=== PATIENT | female | born 1985 | race Caucasian/White ===

== ENCOUNTER 2018-10-07 19:17 | Emergency (ER) | payer BC ==
[2018-10-07] MEDS ORDERED: ONDANSETRON 4 MG/2 ML VIAL IVPB ONE (19:29)
--- NOTE | 2018-10-07 19:29 | PDOC ---
Rapid Medical Evaluation Medical Evaluation: I have performed a brief in-person evaluation of this patient. The patient presents with a chief complaint of: 12 weeks presents with NBNB emesis and lower abdominal pain; denies fever, vaginal bleeding, urinary complaints Pertinent physical exam findings: In NAD, slightly dry mucous membranes I have ordered the following: Labs, IVF, Zofran The patient will proceed to the ED for further evaluation. 10/07/18 19:25
[2018-10-07 19:30] VITALS: BP 108/73; PULSE 107; TEMP 98.9; BMI 24.2
[2018-10-07] MEDS ORDERED: DEXTROSE 5%-NORMAL SALINE 1,000 ML IV ONE (19:30)
[2018-10-07 19:53] LABS: BASO % 0.4 % (0-2.0); EOS % 0.2 % (0-4.5); HEMATOCRIT 40.2 % (32.4-45.2); HEMOGLOBIN 14.2 GM/dL (10.7-15.3); LYMPH % 7.1 % (8-40); MCH 31.2 pg (25.7-33.7); MCHC 35.3 g/dl (32.0-36.0); MEAN CELL VOLUME 88.4 fl (80-96); MEAN PLT VOLUME 7.5 fl (7.5-11.1); MONO % 3.5 % (3.8-10.2); NEUT % 88.8 % (42.8-82.8); PLATELET COUNT 421 K/MM3 (134-434); RBC 4.55 M/mm3 (3.60-5.2); RDW 13.2 % (11.6-15.6); WHITE BLOOD COUNT 18.2 K/mm3 (4.0-10.0)
--- NOTE | 2018-10-07 20:16 | PDOC ---
History of Present Illness - General Chief Complaint: Nausea/Vomiting Stated Complaint: 12 WEEKS PRENANCY Nausea/Vomiting ABD PAIN Time Seen by Provider: 10/07/18 19:54 History Source: Patient - History of Present Illness Initial Comments: 10/07/18 20:36 33-year-old 12 week female complaining of right upper quadrant pain with nausea and vomiting for one day. Patient reports morning sickness with nausea and vomiting for the last 3 weeks today is unusual as per patient. Reports chills denies fever. Denies urinary symptoms, vaginal bleeding, vaginal discharge, flank pain, hematemesis 1 Past History - Past Medical History Allergies/Adverse Reactions: Allergies Allergy/AdvReac Type Severity Reaction Status Date / Time No Known Allergies Allergy Verified 10/07/18 19:30 Home Medications: Ambulatory Orders Doxylamine Succinate/Vit B6 [Burton Sanon 10-10 mg Tablet] 1 each PO HS #7 tablet. 10/07/18 Nitrofurantoin Monohyd/M-Cryst [Macrobid -] 100 mg PO BID #14 capsule 10/07/18 COPD: No Other medical history: migraines - Immunization History Immunization Up to Date: Yes - Suicide/Smoking/Psychosocial Hx Smoking History: Never smoked Information on smoking cessation initiated: No Hx Alcohol Use: No Drug/Substance Use Hx: No Review of Systems - Review of Systems Able to Perform ROS?: Yes Is the patient limited Norwegian proficient: No Constitutional: Yes: Chills ABD/GI: Yes: Nausea, Vomiting, Abdominal cramping (RUQ/ epigastric pain) : No: Symptoms Reported, See HPI, Burning, Dysuria, Discharge, Frequency, Flank Pain, Hematuria, Incontinence, Pain, Urgency, Testicular Mass, Testicular Swelling, Lesions, Testicular Pain, Other Musculoskeletal: No: Symptoms Reported, See HPI, Back Pain, Gout, Joint Pain, Joint Swelling, Muscle Pain, Muscle Weakness, Neck Pain, Joint Stiffness, Other *Physical Exam - Vital Signs Last Vital Signs Temp Pulse Resp BP Pulse Ox 98.9 F 107 H 20 108/73 98 10/07/18 19:26 10/07/18 19:26 10/07/18 19:26 10/07/18 19:26 10/07/18 19:26 - Physical Exam General Appearance: Yes: Appropriately Dressed Respiratory/Chest: positive: Lungs Clear, Normal Breath Sounds Cardiovascular: positive: Regular Rhythm, Tachycardia Gastrointestinal/Abdominal: positive: Normal Bowel Sounds, Tender (RUQ/ epigastric ) Extremity: positive: Normal Capillary Refill, Normal Inspection, Normal Range of Motion Integumentary: positive: Normal Color, Dry, Warm Neurologic: positive: Fully Oriented, Alert, Normal Mood/Affect Moderate Sedation - Procedure Monitoring Vital Signs: Procedure Monitoring Vital Signs Temperature 98.9 F 10/07/18 19:26 Pulse Rate 107 H 10/07/18 19:26 Respiratory Rate 20 10/07/18 19:26 Blood Pressure 108/73 10/07/18 19:26 O2 Sat by Pulse Oximetry (%) 98 10/07/18 19:26 ED Treatment Course - LABORATORY CBC & Chemistry Diagram: 10/07/18 19:42 10/07/18 19:42 - ADDITIONAL ORDERS Additional order review: 10/07/18 19:42 RBC 4.55 MCV 88.4 MCHC 35.3 RDW 13.2 MPV 7.5 Neutrophils % 88.8 H Lymphocytes % 7.1 L Monocytes % 3.5 L Eosinophils % 0.2 Basophils % 0.4 Progress Note - Progress Note Progress Note: A: abdominal pain P: labs Abdominal US TVUS: 12 weeks IUp with [id number] Medical Decision Making - Medical Decision Making 10/07/18 22:29 abdominal pain resolved, abdominal US negative 10/07/18 23:00 has some nausea after drinking apple juice. will give antiemetics and reevaluate *DC/Admit/Observation/Transfer Diagnosis at time of Disposition: Nausea and vomiting during Abdominal pain Qualifiers: Abdominal location: right upper quadrant Qualified Code(s): R10.11 - Right upper quadrant pain UTI (urinary tract infection) Qualifiers: Urinary tract infection type: acute cystitis Hematuria presence: without hematuria Qualified Code(s): N30.00 - Acute cystitis without hematuria - Discharge Dispostion Disposition: HOME - Prescriptions Prescriptions: Doxylamine Succinate/Vit B6 [Burton Sanon 10-10 mg Tablet] 1 each PO HS #7 tablet. Nitrofurantoin Monohyd/M-Cryst [Macrobid -] 100 mg PO BID #14 capsule - Referrals - Patient Instructions Printed Discharge Instructions: DI for Vomiting -- Adult, DI for Morning Sickness Additional Instructions: drink plenty of fluids try a BRAT (bread, rice, apples, toast, bananas) diet follow up with your retail advisor - Post Discharge Activity Forms/Work/School Notes: Back to Work
[2018-10-07] MEDS ORDERED: SODIUM CHLORIDE 1,000 ML IV STA (20:23)
[2018-10-07] MEDS ORDERED: FAMOTIDINE 20 MG/50 ML IVPB 20 MG/50 ML MG IVPB ONE ×2 (20:24→20:27)
[2018-10-07] MEDS ORDERED: ONDANSETRON 4 MG/2 ML VIAL ONE (20:27)
[2018-10-07 20:30] LABS: CALCIUM 9.4 mg/dL (8.5-10.1); CREATININE 0.4 mg/dL (0.55-1.3)
[2018-10-07 20:31] LABS: ANION GAP 9 MMOL/L (8-16); BLOOD UREA NITROGEN 10 mg/dL (7-18); CHLORIDE 104 mmol/L (98-107); CO2 22 mmol/L (21-32); GLUCOSE,RANDOM 83 mg/dL (74-106); POTASSIUM 4.1 mmol/L (3.5-5.1); SODIUM 136 mmol/L (136-145)
[2018-10-07] MEDS ORDERED: METOCLOPRAMIDE HCL INJECTION 10 MG/2 ML VIAL IVPB ONE (22:42)
[2018-10-07] MEDS ORDERED: METOCLOPRAMIDE HCL 10 MG TABLET (FP) PO ONE ×2 (22:47)
[2018-10-07 23:19] LABS: URINE APPEARANCE CLEAR; URINE BILIRUBIN NEGATIVE (<2.0 mg/dL); URINE COLOR YELLOW; URINE GLUCOSE (UA) NEGATIVE (NEGATIVE); URINE KETONE 2+ (NEGATIVE); URINE LEUK ESTERASE TRACE (NEGATIVE); URINE NITRITE NEGATIVE (NEGATIVE); URINE PROTEIN 1+ (NEGATIVE); URINE UROBILINOGEN NEGATIVE mg/dL (0.2-1.0)
[2018-10-07 23:22] LABS: EPI CELLS FEW /HPF (FEW); URINE MUCUS FEW
[2018-10-07] MEDS ORDERED: NITROFURANTOIN MACROCRYSTAL 50 MG CAPSULE (FP) ONE (23:38)
== END 2018-10-07 23:43 | disposition home or self-care (01) ==
LOC: JER 19:17
PROC: 3E0337Z Introduction of Electrolytic and Water Balance Substance into Peripheral Vein, Percutaneous Approach (ICD-10-PCS; principal; 2018-10-07)
PROC: 3E033GC Introduction of Other Therapeutic Substance into Peripheral Vein, Percutaneous Approach (ICD-10-PCS; 2018-10-07)
PROC: 3E033GC Introduction of Other Therapeutic Substance into Peripheral Vein, Percutaneous Approach (ICD-10-PCS; 2018-10-07)
PROC: 3E033GC Introduction of Other Therapeutic Substance into Peripheral Vein, Percutaneous Approach (ICD-10-PCS; 2018-10-07)
DX: O26.891 Other specified pregnancy related conditions, first trimester (principal); O21.0 Mild hyperemesis gravidarum; O23.11 Infections of bladder in pregnancy, first trimester; N30.00 Acute cystitis without hematuria; Z3A.12 12 weeks gestation of pregnancy
CPT/HCPCS: 36415; 76705-TC; 76801-TC; 80048; 81003; 81015; 84702; 85025; 99283-25; J7030

== ENCOUNTER 2019-04-07 05:00 | Inpatient (IN) | payer BC, OTHER ==
[2019-04-07 05:25] LABS: MEAN PLT VOLUME 7.5 fl (7.5-11.1); NEUT % 70.3 % (42.8-82.8)
[2019-04-07 05:29] LABS: BASO % 0.5 % (0-2.0); EOS % 0.6 % (0-4.5); HEMATOCRIT 38.2 % (32.4-45.2); HEMOGLOBIN 12.9 GM/dL (10.7-15.3); LYMPH % 21.3 % (8-40); MCH 28.8 pg (25.7-33.7); MCHC 33.8 g/dl (32.0-36.0); MEAN CELL VOLUME 85.2 fl (80-96); MONO % 7.3 % (3.8-10.2); PLATELET COUNT 363 K/MM3 (134-434); RBC 4.49 M/mm3 (3.60-5.2); RDW 14.4 % (11.6-15.6)
[2019-04-07 05:32] VITALS: BMI 27.8
[2019-04-07 05:46] LABS: BLOOD UREA NITROGEN 8.1 mg/dL (7-18); CREATININE 0.4 mg/dL (0.55-1.3); POTASSIUM 3.8 mmol/L (3.5-5.1)
[2019-04-07] MEDS ORDERED: OXYTOCIN 20 UNITS in 0.9% NS 20 UNIT/1,000 ML INFUS.BAG IV ONE (06:00)
--- NOTE | 2019-04-07 06:06 | HP ---
Past Medical History - Primary Care Physician PCP:: Yaneth Su - Admission Chief Complaint: 33yo P1 @ 38.3wks with contructions, no VB, no LOF, + FM History of Present Illness: 1. IUGR - 8% on 03/02/19 and <3% on 03/09, normal Doppler 2. DS - maternal 2nd uncle - genetic carrier screen neg History Source: Patient, Medical Record - Past Medical History SECURED ENTRANCE MONITOR: Yes: Migraine (negative eval, not on meds) ...: 2 ...Para: 1 ...Term: 1 ...: 0 ...Spon : 0 ...Induced : 0 ...Multiple Gestation: 0 ...LMP: 07/12/18 ... Weeks Gestation by Dates: 38.3 ...EDC by Dates: 04/18/18 ...EDC by Sono: 04/18/18 Endocrine: Yes: Other (Thyroid transient disfunction, currently Euthyroid) - Past Surgical History Past Surgical History: Yes: None Hx Myomectomy: No Hx Transabdominal Cerclage: No - Smoking History Smoking history: Never smoked Have you smoked in the past 12 months: No - Alcohol/Substance Use Hx Alcohol Use: No History of Substance Use: reports: None - Social History History of Recent Travel: No Home Medications - Allergies Allergies/Adverse Reactions: Allergies Allergy/AdvReac Type Severity Reaction Status Date / Time No Known Allergies Allergy Verified 03/18/19 15:34 - Home Medications Home Medications: Ambulatory Orders Tablet 1 tab PO DAILY 03/18/19 Family Disease History - Family Disease History Family Disease History: Diabetes: Father (Prostate CA), Heart Disease: Father Review of Systems - Review of Systems Constitutional: reports: No Symptoms Eyes: reports: No Symptoms HENT: reports: No Symptoms Neck: reports: No Symptoms Cardiovascular: reports: No Symptoms Respiratory: reports: No Symptoms Gastrointestinal: reports: No Symptoms Genitourinary: reports: Other (Labor pains) Breasts: reports: No Symptoms Reported Musculoskeletal: reports: No Symptoms Integumentary: reports: No Symptoms Neurological: reports: No Symptoms Endocrine: reports: No Symptoms Hematology/Lymphatic: reports: No Symptoms Psychiatric: reports: No Symptoms Physical Exam - Maternity Vital Signs: Vital Signs Temperature 97.6 F 04/07/19 05:16 Pulse Rate 80 04/07/19 05:16 Respiratory Rate 20 04/07/19 05:16 Blood Pressure 105/67 04/07/19 05:16 O2 Sat by Pulse Oximetry (%) Constitutional: Yes: Well Nourished, No Distress Eyes: Yes: WNL, Conjunctiva Clear HENT: Yes: WNL, Atraumatic Neck: Yes: WNL, Supple, Trachea Midline Cardiovascular: Yes: WNL, Regular Rate and Rhythm Lungs: Clear to auscultation Breast(s): Yes: WNL - Abdominal Exam/OB Fundal Height: 36 Number of Fetuses: Single Presentation: Vertex Contractions: Yes Regularity: Regular Intensity: Moderate Monitor Mode: External Heart Rate (range): 130 Heart Rate Location: Midline Category: I Accelerations: Uniform Decelerations: None - Vaginal Exam/OB Vaginal Bleediing: No Dilatation (cm): FD Effacement (%): 100 Amniotic Membrane Status: Intact Presentation: Vertex/Position Station: 0 - Physical Exam Musculoskeletal: Yes: WNL Extremities: Yes: WNL Edema: No Integumentary: Yes: WNL ...Motor Strength: WNL Psychiatric: Yes: WNL, Alert, Oriented - Labs Lab Results: CBC, BMP 04/07/19 05:15 04/07/19 05:15 Assessment/Plan 33yo P1 @ 38.3 wks in active labor, Stage 2 Admit to L&D NPO, IVF AROM - clear fluid Start second stage EFW - 2kg, Gynecoid pelvis MF status reasuring Neonatology aware
[2019-04-07] MEDS ORDERED: OXYTOCIN 30 UNITS in 0.9% NS 30 UNIT/500 ML INFUS.BAG IVPB ONE (06:09)
[2019-04-07] MEDS ORDERED: LIDOCAINE HCL 1% PRESERVATIVE FREE - 30ML VIAL ONE (06:10)
[2019-04-07] MEDS ORDERED: DEXTROSE 5%-LACTATED RINGERS 1,000 ML IV SCH (06:15)
[2019-04-07] MEDS: OXYTOCIN 30 UNITS in 0.9% NS 30 UNIT/500 ML INFUS.BAG IVPB SCH (06:15)
[2019-04-07] MEDS: DEXTROSE 5%-LACTATED RINGERS 1,000 ML IV SCH (06:15)
[2019-04-07 06:24] LABS: INR 0.96 (0.83-1.09); PROTHROMBIN TIME (PATIENT) 11.3 SEC (9.7-13.0)
[2019-04-07 06:26] LABS: ACTIVATED PTT 34.7 SECONDS (25.2-36.5)
[2019-04-07] MEDS: OXYTOCIN 20 UNITS in 0.9% NS 20 UNIT/1,000 ML INFUS.BAG IV SCH (07:35)
[2019-04-07] MEDS ORDERED: BENZOCAINE 28 GM HEMORRHOIDAL OINTMENT TP PRN (07:35)
[2019-04-07] MEDS ORDERED: METHYLERGONOVINE MALEATE 0.2 MG/1 ML AMP IM PRN (07:35)
[2019-04-07] MEDS ORDERED: BISACODYL 10 MG SUPP.RECT RC PRN (07:35)
[2019-04-07] MEDS ORDERED: BENZOCAINE 20% 57 GM BOTTLE TP PRN (07:35)
[2019-04-07] MEDS ORDERED: WITCH HAZEL 50% (TUCKS) 40 PAD/JAR PAD TP PRN (07:35)
--- NOTE | 2019-04-07 07:39 | PN ---
Delivery - Delivery Vaginal Delivery: No Problems Type of Anesthesia: None Episiotomy/Laceration: None EBL (cc): 200 Delivery, Single - Stages of Labor Date 1st Stage Initiatied: 04/07/19 Time 1st Stage Initiated: 02:00 Date 2nd Stage Initiated: 04/07/19 Time 2nd Stage Initiated: 05:45 Date of Delivery: 04/07/19 Time of Delivery: 07:00 Date Placenta Delivered: 04/07/19 Time Placenta Delivered: 07:30 Placenta: Yes: Spontaneous - Condition of Sea Shell Gatherer/Front End Drupal Developer Present: Yes Name: Ana Ramirez Infant Gender: Female Weight: 5 lb 5 oz Position: Left, OA - 1 Minute Total Score: 9 5 Minutes Total Score: 9 - Feeding Plan Initial Plan: Elected not to breastfeed exclusively throughout hospitalization Benefits of Exclusively reinforced: Yes Remarks - Remarks Remarks: Uncomplicated delivery of head and shoulders
[2019-04-07] MEDS ORDERED: D5W-LR W/ 20 UNITS OXYTOCIN 20 UNIT/1,000 ML INFUS.BAG IV SCH (07:45)
[2019-04-07] MEDS: IBUPROFEN 600 MG TABLET (FP) PO PRN ×2 (08:20→18:19)
[2019-04-07 08:39] LABS: VENOUS PC02 39.4 mmHg (41-51); VENOUS PO2 35.1 mmHg (30-40)
[2019-04-07 08:42] LABS: ARTERIAL BLD GAS O2 SATURATION 54.6 % (95-98); ARTERIAL BLOOD GAS BASE EXCESS -6.2 meq/l (-2-2); ARTERIAL BLOOD GAS PCO2 66.4 mmHg (35-45); ARTERIAL BLOOD GAS PO2 30.6 mmHg (80-105)
[2019-04-07 08:44] LABS: ARTERIAL BLOOD GAS pH 7.18 (7.35-7.45)
[2019-04-07 08:45] LABS: VENOUS PH 7.31 (7.31-7.41)
[2019-04-07] MEDS: PRENATAL VITAMINS W/ FOLIC ACID TABLET (FP) PO SCH (10:33)
[2019-04-07] MEDS: FERROUS SO4 325 MG TABLET (FP) PO SCH ×2 (10:33→21:07)
[2019-04-07] MEDS: ACETAMINOPHEN 325 MG TABLET (FP) PO PRN (18:19)
[2019-04-08] MEDS: ACETAMINOPHEN 325 MG TABLET (FP) PO PRN (01:04)
[2019-04-08] MEDS: IBUPROFEN 600 MG TABLET (FP) PO PRN (01:04)
--- NOTE | 2019-04-08 02:22 | PN ---
Post Progress Note - Subjective Subjective: Patient without acute complaints. Reports tolerating oral intake without nausea or vomiting. Ambulating without dizziness. Denies fevers or chills. Pain well controlled with oral pain medication. without difficulty. Passing flatus. Post Day: 1 Type of Delivery: Vital Signs: Vital Signs Temperature 97.9 F 04/07/19 22:47 Pulse Rate 72 04/07/19 22:47 Respiratory Rate 18 04/07/19 22:47 Blood Pressure 101/52 L 04/07/19 22:47 O2 Sat by Pulse Oximetry (%) 100 04/07/19 08:30 Uterus: Yes: Fundus Firm, Fundus below umbilicus Abdomen/GI: Yes: Abdomen soft, Passing flatus, Tolerating PO. No: Abdominal Distention, Tender Lochia: Yes: Serosa Lochia, amount: Small Extremities: Yes: Calves non-tender, Edema (trace) Activity: Ambulating - Labs Labs: CBC WBC 16.0 K/mm3 (4.0-10.0) H 04/07/19 05:15 RBC 4.49 M/mm3 (3.60-5.2) 04/07/19 05:15 Hgb 12.9 GM/dL (10.7-15.3) 04/07/19 05:15 Hct 38.2 % (32.4-45.2) 04/07/19 05:15 MCV 85.2 fl (80-96) 04/07/19 05:15 MCH 28.8 pg (25.7-33.7) 04/07/19 05:15 MCHC 33.8 g/dl (32.0-36.0) 04/07/19 05:15 RDW 14.4 % (11.6-15.6) 04/07/19 05:15 Plt Count 363 K/MM3 (134-434) 04/07/19 05:15 MPV 7.5 fl (7.5-11.1) 04/07/19 05:15 Absolute Neuts (auto) 11.2 K/mm3 (1.5-8.0) H 04/07/19 05:15 Neutrophils % 70.3 % (42.8-82.8) D 04/07/19 05:15 Lymphocytes % 21.3 % (8-40) D 04/07/19 05:15 Monocytes % 7.3 % (3.8-10.2) D 04/07/19 05:15 Eosinophils % 0.6 % (0-4.5) D 04/07/19 05:15 Basophils % 0.5 % (0-2.0) 04/07/19 05:15 Nucleated RBC % 0 % (0-0) 04/07/19 05:15 Assessment/Plan 33 yo PPD # 1 s/p , afebrile, vital signs stable, doing well 1. Continue routine care. 2. Follow up AM CBC 3. Rh positive status, no rhogam indicated. 4. Encourage ambulation 5. Continue oral pain medication 6. Anticipate discharge home day #2
[2019-04-08 08:21] LABS: BASO % 0.4 % (0-2.0); EOS % 0.6 % (0-4.5); HEMATOCRIT 35.8 % (32.4-45.2); HEMOGLOBIN 12.1 GM/dL (10.7-15.3); LYMPH % 22.5 % (8-40); MCH 28.9 pg (25.7-33.7); MCHC 33.7 g/dl (32.0-36.0); MEAN CELL VOLUME 85.9 fl (80-96); MEAN PLT VOLUME 7.7 fl (7.5-11.1); MONO % 6.6 % (3.8-10.2); NEUT % 69.9 % (42.8-82.8); PLATELET COUNT 331 K/MM3 (134-434); RBC 4.17 M/mm3 (3.60-5.2); RDW 14.3 % (11.6-15.6); WHITE BLOOD COUNT 14.7 K/mm3 (4.0-10.0)
[2019-04-08] MEDS: PRENATAL VITAMINS W/ FOLIC ACID TABLET (FP) PO SCH (09:28)
[2019-04-08] MEDS: FERROUS SO4 325 MG TABLET (FP) PO SCH ×2 (09:28→22:55)
[2019-04-08] MEDS: OXYTOCIN 20 UNITS in 0.9% NS 20 UNIT/1,000 ML INFUS.BAG IV SCH (09:31)
[2019-04-08] MEDS ORDERED: SENNOSIDES/DOCUSATE COMBO (SENNA PLUS) TABLET (UD) PO PRN (22:00)
[2019-04-08] MEDS: DEXTROSE 5%-LACTATED RINGERS 1,000 ML IV SCH (23:43)
[2019-04-08] MEDS: OXYTOCIN 30 UNITS in 0.9% NS 30 UNIT/500 ML INFUS.BAG IVPB SCH (23:43)
[2019-04-08 23:47] VITALS: TEMP 98.2
--- NOTE | 2019-04-09 06:42 | DS ---
Physical Exam-CRYPTANALYST Vital Signs: Vital Signs Temperature 98.2 F 04/08/19 22:00 Pulse Rate 96 H 04/08/19 22:00 Respiratory Rate 18 04/08/19 22:00 Blood Pressure 110/58 L 04/08/19 22:00 O2 Sat by Pulse Oximetry (%) 100 04/07/19 08:30 Constitutional: Yes: Well Nourished, No Distress, Calm Eyes: Yes: WNL, Conjunctiva Clear, EOM Intact HENT: Yes: WNL, Atraumatic, Normocephalic Neck: Yes: WNL, Supple, Trachea Midline Cardiovascular: Yes: WNL, Regular Rate and Rhythm Respiratory: Yes: WNL, Regular, CTA Bilaterally Gastrointestinal: Yes: WNL ...Rectal Exam: Yes: WNL Renal/: Yes: WNL ....Post : Yes: Uterus firm, Uterus non-tender, Slight lochia rubra Breast(s): Yes: WNL Musculoskeletal: Yes: WNL Extremities: Yes: WNL Edema: No Integumentary: Yes: WNL Neurological: Yes: WNL, Alert, Oriented ...Motor Strength: WNL Psychiatric: Yes: WNL, Alert, Oriented Labs: CBC, BMP 04/08/19 06:54 04/07/19 05:15 Delivery - Delivery Vaginal Delivery: No Problems Type of Anesthesia: None Episiotomy/Laceration: None EBL (cc): 200 Delivery, Single - Stages of Labor Date 1st Stage Initiatied: 04/07/19 Time 1st Stage Initiated: 02:00 Date 2nd Stage Initiated: 04/07/19 Time 2nd Stage Initiated: 05:45 Date of Delivery: 04/07/19 Time of Delivery: 07:00 Time Placenta Delivered: 07:30 Placenta: Yes: Spontaneous - Condition of Central Supply Aide/Instrument Panel Assembler Present: Yes Name: Ana Ramirez Gender: Female Weight: 5 lb 5 oz Position: Left, OA Total Hours ROM (Hrs/Mins): 1h45 - 1 Minute Total Score: 9 5 Minutes Total Score: 9 - [place] Feeding Plan Initial Plan: Elected not to breastfeed exclusively throughout hospitalization Benefits of Exclusively reinforced: Yes Discharge Summary Reason For Visit: LABOR ADMIT Current Active Problems Vaginal delivery (Acute) Procedures: Principal: Condition: Good - Instructions Diet, Activity, Other Instructions: Return to office in 4-6 weeks Physical activity Resume your normal everyday activity as tolerated no heavy lifting or exercise until seen by your surgeon. You may walk unlimited danae of and climb stairs. You may resume driving the car when you feel safe and comfortable behind the wheel. No sexual activity as instructed. Wound care If you have a bandage, leave it on, and keep dry for 48-72 hours. After that time discard the outer bandage. If they are tapes on the skin under the out of bandage leave them in place. They will peel off in the next 7 to 10 days. Do Not Peel them off. You may shower the day after surgery. If there are tapes present on the skin, you may shower over them. Diet There are no dietary restrictions. Eat healthy, high-fiber foods. Drink 6 to 8 glasses of liquid each day. This will assist in keeping your bowels are regular. Pain management You may take Tylenol or acetaminophen or Ibuprofen (for example, Motrin, Advil etc.) as prescribed for moderate to severe pain. Call MD for any of the following: Severe pain not relieved by medication Fever of 101 or higher Excessive bleeding or drainage on dressing Inability to urinate Referrals: Yaneth Su MD [Staff Physician] - Quentin Chandra MD [Staff Physician] - Disposition: HOME - Home Medications Comprehensive Discharge Medication List: Ambulatory Orders Tablet 1 tab PO DAILY 03/18/19 Docusate Sodium [Colace -] 100 mg PO BID PRN #30 capsule 04/08/19 Ibuprofen [Motrin -] 600 mg PO QID #60 tablet 04/08/19
[2019-04-09 08:16] VITALS: BP 96/62; PULSE 86
[2019-04-09] MEDS: PRENATAL VITAMINS W/ FOLIC ACID TABLET (FP) PO SCH (09:39)
[2019-04-09] MEDS: FERROUS SO4 325 MG TABLET (FP) PO SCH (09:39)
== END 2019-04-09 14:55 | disposition home or self-care (01) | DRG 807 ==
LOC: JLDR 05:00 → J3W 09:57
PROVIDERS: ADMIT Obstetrics & Gynecology; ATTEND Obstetrics & Gynecology
PROC: 10E0XZZ Delivery of Products of Conception, External Approach (ICD-10-PCS; principal; 2019-04-07)
DX: O36.5930 Maternal care for other known or suspected poor fetal growth, third trimester, not applicable or unspecified (principal); Z37.0 Single live birth; Z3A.38 38 weeks gestation of pregnancy
CPT/HCPCS: 36415; 36600; 59409; 71046-TC-FY; 80048; 82803; 85025; 85610; 85730; 86593; 86850; 86900; 86901

== ENCOUNTER 2019-11-21 14:11 | Emergency (ER) | payer BC, OTHER ==
[2019-11-21 14:31] VITALS: TEMP 98.5; BMI 25.2
[2019-11-21] MEDS ORDERED: KETOROLAC TROMETHAMINE 60 MG/2 ML VIAL IM ONE (14:37)
[2019-11-21] MEDS ORDERED: METOCLOPRAMIDE HCL INJECTION 10 MG/2 ML VIAL IM ONE (14:37)
[2019-11-21] MEDS ORDERED: METOCLOPRAMIDE HCL INJECTION 10 MG/2 ML VIAL ONE (14:43)
[2019-11-21] MEDS ORDERED: KETOROLAC TROMETHAMINE 60 MG/2 ML VIAL ONE (14:43)
--- NOTE | 2019-11-21 14:45 | PDOC ---
History of Present Illness - General Chief Complaint: Migraine Headache Stated Complaint: LT SIDE NUMBNESS History Source: Patient Exam Limitations: No Limitations - History of Present Illness Initial Comments: 11/21/19 14:41 34-year-old female with history of migraines presents the ED with left frontal throbbing pressure causing her photosensitivity along with "zome-aai-[id number]" to the left cheek and ear patient states has not been sleeping well due to a 7- month-old at home but denies any fever, chills, nausea., Double vision, recent head injury, recent illness. It causes stomach pain Patient states took Motrin at home with no relief. Patient states unable to take Excedrin Migraine since Timing/Duration: reports: constant Severity: Yes: moderate Associated Symptoms: reports: other (Headache). denies: vision changes Past History - Travel Traveled outside of the country in the last 30 days: No Close contact w/someone who was outside of country & ill: No - Past Medical History Allergies/Adverse Reactions: Allergies Allergy/AdvReac Type Severity Reaction Status Date / Time No Known Allergies Allergy Verified 03/18/19 15:34 Home Medications: Ambulatory Orders Tablet 1 tab PO DAILY 03/18/19 Docusate Sodium [Colace -] 100 mg PO BID PRN #30 capsule 04/08/19 Ibuprofen [Motrin -] 600 mg PO QID #60 tablet 04/08/19 Asthma: No Cancer: No Cardiac Disorders: No COPD: No Diabetes: No HTN: No Seizures: No Thyroid Disease: No - Immunization History Immunization Up to Date: Yes - Psycho Social/Smoking Cessation Hx Smoking History: Never smoked Have you smoked in the past 12 months: No Information on smoking cessation initiated: No Hx Alcohol Use: No Drug/Substance Use Hx: No Hx Substance Use Treatment: No Patient Lives Alone: No Lives with/in: spouse/SO Neuro Specific PMHX - Complaint Specific PMHX Migraine: Yes Review of Systems - Review of Systems Able to Perform ROS?: No Is the patient limited Kyrgyz proficient: No Constitutional: No: Symptoms Reported HEENTM: No: Symptoms Reported Respiratory: No: Symptoms reported Cardiac (ROS): No: Symptoms Reported ABD/GI: No: Symptoms Reported : No: Symptoms Reported Musculoskeletal: No: Symptoms Reported Integumentary: No: Symptoms Reported Neurological: Yes: Headache, Paresthesia Endocrine: No: Symptoms Reported Hematologic/Lymphatic: No: Symptoms Reported *Physical Exam - Vital Signs Last Vital Signs Temp Pulse Resp BP Pulse Ox 98.5 F 116 H 20 125/85 100 11/21/19 14:26 11/21/19 14:26 11/21/19 14:26 11/21/19 14:26 11/21/19 14:26 - Physical Exam General Appearance: Yes: Nourished, Appropriately Dressed. No: Apparent Distress HEENT: negative: Pale Conjunctivae Neck: positive: Supple Respiratory/Chest: positive: Lungs Clear, Normal Breath Sounds. negative: Respiratory Distress, Accessory Muscle Use Cardiovascular: positive: Regular Rhythm, Tachycardia. negative: Murmur Integumentary: positive: Normal Color, Warm, Moist Neurologic: positive: Motor Strength 5/5 (ambulatory ) Medical Decision Making - Medical Decision Making 11/21/19 14:51 Chief complaint migraine unrelieved with Motrin. Patient requesting IM medication patient states similar presentation to previous migraines in the past. Exam: Patient no neurofocal deficit patient had no tenderness over the temporal artery ENT exam normal. PERRLA. Plan: Patient requesting water so gave water. Patient ordered for Toradol and Reglan 11/21/19 15:20 Patient states feeling much better. Patient tolerated water. Patient will be discharged home with Fioricet along with supportive care measures for migraine prevention and management Discharge - Discharge Information Problems reviewed: Yes Clinical Impression/Diagnosis: Migraine Condition: Improved Disposition: HOME - Follow up/Referral - Patient Discharge Instructions Patient Printed Discharge Instructions: DI for Migraine Additional Instructions: At this time I recommend going into a dark/cold area for the next few hours to completely resolve your headache. Try to eat something and drink water. Take Fioricet as needed for headache. - Post Discharge Activity
[2019-11-21 15:46] VITALS: BP 102/67; PULSE 72
== END 2019-11-21 15:46 | disposition home or self-care (01) ==
LOC: JER 14:11
PROC: 3E023GC Introduction of Other Therapeutic Substance into Muscle, Percutaneous Approach (ICD-10-PCS; principal; 2019-11-21)
PROC: 3E0233Z Introduction of Anti-inflammatory into Muscle, Percutaneous Approach (ICD-10-PCS; 2019-11-21)
DX: G43.909 Migraine, unspecified, not intractable, without status migrainosus (principal)
CPT/HCPCS: 99284-25

== ENCOUNTER 2021-08-28 19:07 | Emergency (ER) | payer BC, OTHER ==
[2021-08-28 19:35] VITALS: TEMP 98.7; BMI 23.2
[2021-08-28] MEDS ORDERED: SODIUM CHLORIDE 0.9% 500 ML INFUS.BAG IV ONE (20:30)
[2021-08-28] MEDS ORDERED: METOCLOPRAMIDE HCL INJECTION 10 MG/2 ML VIAL IVPB ONE (20:32)
[2021-08-28] MEDS ORDERED: ACETAMINOPHEN 1000 MG/100 ML VIAL IVPB ONE (20:33)
[2021-08-28] MEDS ORDERED: ACETAMINOPHEN INJECTION 100 ML IVPB ONE (20:52)
[2021-08-28] MEDS ORDERED: METOCLOPRAMIDE HCL INJECTION 10 MG/2 ML VIAL ONE (20:52)
[2021-08-28 22:44] LABS: EPI CELLS 18 /uL (0-25.1); HYALINE CASTS 1 /uL (0-3.1); PH,URINE 6.5 (5.0-8.0); URINE APPEARANCE CLEAR; URINE BACTERIA 226 /uL (0-1359); URINE BILIRUBIN NEGATIVE (NEGATIVE); URINE COLOR YELLOW; URINE GLUCOSE (UA) NEGATIVE (NEGATIVE); URINE KETONE 4+ (NEGATIVE); URINE LEUK ESTERASE NEGATIVE (NEGATIVE); URINE NITRITE NEGATIVE (NEGATIVE); URINE PROTEIN NEGATIVE (NEGATIVE); URINE RBC 48 /uL (0-23.9); URINE UROBILINOGEN 0.2 mg/dL (0.2-1.0); URINE WBC 9 /uL (0-25.8)
[2021-08-28 22:53] LABS: HCG,QUALITATIVE URINE Negative
[2021-08-28 23:25] VITALS: BP 116/80; PULSE 80
== END 2021-08-28 23:45 | disposition home or self-care (01) ==
LOC: JER 19:07
PROC: 3E033NZ Introduction of Analgesics, Hypnotics, Sedatives into Peripheral Vein, Percutaneous Approach (ICD-10-PCS; principal; 2021-08-28)
PROC: 3E033GC Introduction of Other Therapeutic Substance into Peripheral Vein, Percutaneous Approach (ICD-10-PCS; 2021-08-28)
DX: G43.909 Migraine, unspecified, not intractable, without status migrainosus (principal)
CPT/HCPCS: 81003; 84703; 99284-25; J0131

== ENCOUNTER 2025-06-05 13:44 | Emergency (ER) | payer BC, OTHER ==
[2025-06-05 13:51] VITALS: RESP 20; TEMP 98.3; BMI 24.2
[2025-06-05 14:31] LABS: MCHC 34.3 g/dl (32.2-35.5); MEAN CELL VOLUME 87.4 fl (79.4-94.8); MEAN PLT VOLUME 9.1 fl (9.4-12.3); RDW 12.8 % (12.1-16.8)
[2025-06-05] MEDS ORDERED: ACETAMINOPHEN INJECTION 100 ML ONE (14:31)
[2025-06-05] MEDS ORDERED: METOCLOPRAMIDE HCL INJECTION 10 MG/2 ML VIAL ONE (14:31)
[2025-06-05 14:50] LABS: GLUCOSE,RANDOM 131.0 mg/dL (74-106)
[2025-06-05 14:51] LABS: TOT PROT 7.1 g/dl (6.4-8.2)
[2025-06-05 14:52] LABS: CO2 24.0 mmol/L (21-32)
[2025-06-05 14:53] LABS: ALK PHOS 56.0 U/L (40-150)
[2025-06-05 14:56] LABS: CREATININE 0.56 mg/dL (0.55-1.3); SGOT/AST 19.0 U/L (5-34); SGPT/ALT 17.0 U/L (0-55)
[2025-06-05] MEDS: ACETAMINOPHEN 1000 MG/100 ML BAG IVPB ONE (15:06)
[2025-06-05] MEDS: SODIUM CHLORIDE 0.9% 500 ML INFUS.BAG IV ONE (15:06)
[2025-06-05 15:16] LABS: HCV DIAGNOSTIC IN-HOUSE W/RFLX NON-REACTIVE (NONREACTIVE)
[2025-06-05 15:17] LABS: HIV INTERPRETATION NEGATIVE (NEGATIVE)
[2025-06-05] MEDS: METOCLOPRAMIDE HCL INJECTION 10 MG/2 ML VIAL IVPUSH ONE (15:40)
[2025-06-05 17:53] VITALS: BP 123/78; PULSE 66
== END 2025-06-05 18:17 | disposition home or self-care (01) ==
LOC: JER 13:44
PROC: 3E033NZ Introduction of Analgesics, Hypnotics, Sedatives into Peripheral Vein, Percutaneous Approach (ICD-10-PCS; principal; 2025-06-05)
PROC: 3E033GC Introduction of Other Therapeutic Substance into Peripheral Vein, Percutaneous Approach (ICD-10-PCS; 2025-06-05)
PROC: 3E033GC Introduction of Other Therapeutic Substance into Peripheral Vein, Percutaneous Approach (ICD-10-PCS; 2025-06-05)
DX: G43.809 Other migraine, not intractable, without status migrainosus (principal); H53.8 Other visual disturbances; R11.0 Nausea; R20.0 Anesthesia of skin; R20.2 Paresthesia of skin; H53.149 Visual discomfort, unspecified
CPT/HCPCS: 36415; 80053; 85027; 86803; 87389; 99284-25